=== PATIENT | male | born 1965 | race Caucasian/White ===

== ENCOUNTER 2022-12-28 18:57 | Outpatient (REF) | payer BC, SELFPAY | END 2022-12-28 18:58 | disposition home or self-care (01) | LOC: LBN 18:57 | PROVIDERS: Visit Provider Physician Assistant Medical | DX: J34.9 Unspecified disorder of nose and nasal sinuses (principal); R07.0 Pain in throat | CPT/HCPCS: 87070 ==

== ENCOUNTER 2023-01-21 04:52 | Emergency (ER) | payer BC, SELFPAY ==
[2023-01-21] VITALS (33 sets, daily range): BP systolic 100–129; BP diastolic 63–87; PULSE 41–86; RESP 16; TEMP 36.4; O2SAT 90–100
--- NOTE | 2023-01-21 05:00 | DI.CT_ITS ---
Exam(s) CT HEAD SINUS WO EXAM: CT HEAD SINUS WO CLINICAL HISTORY: near syncope and sinus congestion.. TECHNIQUE: Imaging Protocol: Axial computed tomography images with coronal and sagittal reformatted images were created and reviewed COMPARISON: No exams were available for comparison FINDINGS: BRAIN: There are no skull fractures. Paranasal sinus findings discussed below There is no evidence of intracranial hemorrhage, mass effect, or shift of midline structures. There are no extra-axial fluid collections. The ventricles are not enlarged or shifted and there is no blo od within the ventricular system nor within the basal cisterns. MAXILLOFACIAL CT SCAN: There is no evidence of acute facial fractures. No evidence of orbital blowout fracture.. There are surgical defects in the medial lloyd both maxillary sinuses including resection of the bila teral ostiomeatal units. There is abundant mucosal thickening in the maxillary sinuses, left more than right. No associated a cute fluid levels. There is mild mucosal thickening in the sphenoid sinuses. Also in the left front al sinus. There has been resection of ethmoidal air cells bilaterally. Mastoid air cells are clear- well aerated. No fluid in the middle ear cavities. IMPRESSION: No acute intracranial findings on this noninfused CT scan of the brain. Evidence of prior paranasal sinus surgery. Mucosal thickening in left greater than right maxillary s inus with polyposis in the nasal cavity. Also mucosal findings in the left frontal lobe and sphenoid sinuses. RADIATION DOSE DELIVERED: 940.05mGy.cm Total DLP DATA REPOSITORY: All CT scans at this facility are submitted to the National Radiology Data Registry (NRDR) Dose Index Registry (DIR) with the [employer] (ACR). RADIATION OPTIMIZATION: All CT scans at this facility use at least one of these dose optimization te chniques: automated exposure control; mA and/or kV adjustment per patient size (includes targeted exa ms where dose is matched to clinical indication); or iterative reconstruction.
--- NOTE | 2023-01-21 05:00 | DI.RAD_ITS ---
Exam(s) XR CHEST 2V PA LATERAL EXAM: XR CHEST 2V PA LATERAL CLINICAL HISTORY: near syncope, chest numbness. TECHNIQUE: 2D digital imaging was performed. COMPARISON: No exams were available for comparison FINDINGS: 2 views: Heart size is normal. The mediastinum is not widened. Lungs are clear. No infiltrates nor pleural effusions. IMPRESSION: No acute pulmonary findings. DATA REPOSITORY: RADIATION DOSE DELIVERED:
--- NOTE | 2023-01-21 05:15 | RT.EKG_ITS ---
APPROVED REPORT Exam: Resting ECG Reason for Exam: near syncope Patient Location: E HR:55 bpm ECG Measurements Heart Rate 55 AXIS CO 222 P 39 QRSd 109 QRS 73 QT 453 T 41 QTc 434 Conclusion Sinus bradycardia...rate< 60 Prolonged CO interval...CO >210, V-rate 50- 90 Borderline 1st degree AVB. Normal axis. No STEMI. no previous available for comparison.
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
[2023-01-21 05:31] LABS: Abs Immature Grans 0.01 10^3/uL (0.0-0.06); Absolute Basophil Count 0.11 10^3/uL (0.0-0.2); Absolute Eosinophil Count 0.51 10^3/uL (0.0-0.7); Absolute Lymphocyte Count 2.67 10^3/uL (1.2-3.4); Absolute Monocyte Count 0.82 10^3/uL (0.1-0.8); Absolute Neutrophil Count 3.88 10^3/uL (1.2-6.7); Basophils % 1.4; Eosinophils % 6.4; HCT 42.6 % (40.0-50.0); HGB 14.7 g/dL (13.5-17.5); Immature Grans % 0.1; Lymphocytes % 33.4; MCH 28.5 pg (27.0-33.0); MCHC 34.5 % (32.0-36.0); MCV 83 fL (80-95); MPV 8.8 fL (8.0-11.0); Monocytes % 10.3; Neutrophils % 48.4; Platelet Count 392 10^3/uL (130-400); RBC 5.16 10^6/uL (4.36-5.78); RDW 13.3 % (11.8-14.1); RDW-SD 40.7 fL
[2023-01-21 05:44] LABS: Mono Screening Negative (Negative)
[2023-01-21 05:46] LABS: ALT 32 U/L (16-63); AST 22 U/L (15-37); Albumin 3.9 g/dL (3.4-5.0); Alkaline Phosphatase 79 U/L (46-116); Anion Gap 13.7 mmol/L (3-11); BUN 10 mg/dL (7-18); Bilirubin, Total 0.4 mg/dL (0.2-1.0); CO2 23.3 mmol/L (21.0-32.0); Calcium 9.3 mg/dL (8.5-10.1); Chloride 101 mmol/L (98-107); Estimated GFR 87.78 (mL/min/1.73m2); Glucose 105 mg/dL (74-106); Potassium 3.4 mmol/L (3.5-5.1); Sodium 138 mmol/L (136-145); Total Protein 8.2 g/dL (6.4-8.2)
[2023-01-21 05:49] LABS: Troponin I < 50 ng/L (<or=60)
[2023-01-21 07:19] LABS: COVID-19 PCR Negative (Negative); Influenza A PCR Negative (Negative); Influenza B PCR Negative (Negative); RSV PCR Negative (Negative)
[2023-01-21 07:20] LABS: Source Nasopharynx
--- NOTE | 2023-01-21 08:07 | DI.VRAD_ITS ---
PROCEDURE INFORMATION: Exam: CT Head Without Contrast Exam date and time: 01/21/2023 6:06 AM Age: 57 years old Clinical indication: Other: Near syncope and sinus congestion. Prior surgery; Surgery date: 6+ months TECHNIQUE: Imaging protocol: Computed tomography of the head without contrast. COMPARISON: No relevant prior studies available. FINDINGS: Brain: Normal. No hemorrhage. Unremarkable white matter. No mass effect. Cerebral ventricles: No ventriculomegaly. Paranasal sinuses: Polyposis involving the frontal and maxillary sinuses. There is polyposis in the nasal cavity. Mastoid air cells: Visualized mastoid air cells are well aerated. Bones/joints: Unremarkable. No acute fracture. Soft tissues: Unremarkable. IMPRESSION: 1. No acute intracranial abnormality is appreciated. 2. Polyposis within the paranasal sinuses and nasal cavity. PROCEDURE INFORMATION: Exam: CT Maxillofacial Without Contrast, Sinus Exam date and time: 01/21/2023 6:06 AM Age: 57 years old Clinical indication: Other: Near syncope and sinus congestion. Prior surgery; Surgery date: 6+ months TECHNIQUE: Imaging protocol: CT Maxillofacial without contrast. Focus on the sinuses. COMPARISON: No relevant prior studies available. FINDINGS: Frontal sinuses: Normal. No air-fluid levels. Ethmoid sinuses: Normal. No air-fluid levels. Sphenoid sinuses: Normal. No air-fluid levels. Maxillary sinuses: Polyposis in the frontal and maxillary sinuses left side greater than right. Minimal polyposis within the sphenoid sinus. Postoperative antrectomy and uncinectomy surgical change. There is communication of the both maxillary sinuses with the nasal cavity. Nasal cavity: Polyposis in the nasal cavity. Orbital cavities: Orbits are normal. Globes are unremarkable. Bones/joints: Unremarkable. Soft tissues: Unremarkable. IMPRESSION: Postoperative antrectomy and uncinectomy surgical change. There is polyposis in both maxillary sinuses left side greater than right. There is polyposis in the nasal cavity. There is minimal polyposis involving the frontal and sphenoid sinuses left side greater than right. Dictated and Authenticated by: Ekaterina Hoff MD. Ordering:ZACHARIAH Loving MD
--- NOTE | 2023-01-21 08:07 | DI.VRAD_ITS ---
PROCEDURE INFORMATION: Exam: XR Chest Exam date and time: 01/21/2023 6:10 AM Age: 57 years old Clinical indication: Other: Near syncope; Prior surgery; Surgery date: 6+ months; Surgery type: Snus TECHNIQUE: Imaging protocol: Radiologic exam of the chest. Views: 2 views. COMPARISON: No relevant prior studies available. FINDINGS: Lungs: Unremarkable. No consolidation. Pleural spaces: Unremarkable. No pleural effusion. No pneumothorax. Heart/Mediastinum: Unremarkable. No cardiomegaly. Bones/joints: Unremarkable. IMPRESSION: No acute findings. Dictated and Authenticated by: Ekaterina Hoff MD. Ordering:ZACHARIAH Loving MD
--- NOTE | 2023-01-21 09:00 | NUR.NOTE ---
Referral per DR. Do to ENT next week for Polyposis. Put the referral in the Funnel Setter's box for follow up assistance.Nursing Note:
== END 2023-01-21 08:55 | disposition home or self-care (01) ==
PROVIDERS: Emergency Provider Emergency Medicine Emergency Medical Services
DX: J33.8 Other polyp of sinus (principal); R09.81 Nasal congestion; R55 Syncope and collapse; R06.4 Hyperventilation
CPT/HCPCS: 36415; 80053; 87637; 93005; 99285; 70450; 70486; 71046; 84484; 85025; 86308; 93010; 99284

== ENCOUNTER → 2023-04-03 02:10 | Outpatient (CLI) | payer BC, SELFPAY ==
--- NOTE | 2023-04-03 06:25 | ETT_ITS ---
APPROVED REPORT Exam: Exercise Treadmill Patient Location: Out-Patient Room/Bed: Stress Nurse: Imtiaz Sullivan RN Ordering Provider:JENIFFER YANES, Contact Number: [phone] BMI: 28.94 Baseline Rhythm: Sinus Bradycardia Indications: Follow up/exertional palpitations, exertional, HTN. Medical History Medical History: HTN Cardiac Medications: amlodipine. Allergies: amoxicillen, PCC, ibuprofen, sulfa, tree nuts, diptheria, pertyussis, tetanus vaccines. Cardiac Risk Factors: HTN, HLD. Pretest Chest Pain Characteristics: No chest pain Exercise History: Physically active Lung Sounds: Clear to auscultation Heart Sounds: Regular Stress Test Details Test: Exercise stress testing was performed using a Enrique protocol. Rest Stress HR Resting HR Supine: 57 bpm Max Heart Rate (APMHR): 163 bpm Resting HR Standin bpm Target HR (85% APMHR): 139 bpm Max HR Achieved: 150 bpm % of APMHR: 92 Recovery HR: 83 bpm HR response to stress: Normal HR response to stress BP Resting BP Supine: 124/74 mmHg Resting BP Standin/82 mmHg Max BP: 184/68 mmHg Recovery BP: 142/74 mmHg BP response to stress: Normal blood pressure response to stress. ECG Resting ECG: Sinus Rhythm, Sinus Bradycardia Stress ECG: Sinus Tachycardia ST Change: No significant ST segment changes noted Arrhythmia: None Recovery ECG: Sinus Rhythm Recovery ST Change: No significant ST segment changes noted Recovery Arrhythmia: None Clinical Reason for Termination: Fatigue, Target HR Achieved Stress Symptoms: General Fatigue Exercise duration: 9 min00 sec Highest Stage Reached: Stage 4: 4.2 mph at 16% grade. Exercise capacity: 10 METs Angina Score: None Pimentel Treadmill Score: 9.3 Rate Pressure Product: [id number] Stress ECG Conclusion 1. Resting electrocardiogram showed vertical axis, late transition 2. Patient exercised on the Enrique protocol and completed a workload of 10 METS stopping due to fatigu e 3. Normal heart rate and blood pressure response to exercise. The patient achieved 92% of predicted heart rate for age 4. There was no electrocardiographic evidence of myocardial ischemia 5. There were no dysrhythmias Pimentel Treadmill Score is 9.3 which is Low risk. Stress Test Summary STAGE Time (mins) Speed (mph) Grade (%) HR BP SpO2 SYMPTOMS METS Supine 57 127/74 98 Standing 73 112/82 1 3 1.7 10 94 142/72 98 4.5 2 6 2.5 12 110 148/74 98 7 3 9 3.4 14 150/80 98 10 1 min recovery 150 184/68 98 3 min recovery 90 176/72 98 6 min recovery 83 142/74 98
== END ==
PROVIDERS: PCP Nurse Practitioner; Visit Provider Nurse Practitioner
DX: I10 Essential (primary) hypertension (principal); R00.2 Palpitations
CPT/HCPCS: 93017

== ENCOUNTER 2024-04-17 10:29 | Outpatient (CLI) | payer BC, SELFPAY ==
--- NOTE | 2024-04-17 09:30 | DI.RAD_ITS ---
Exam(s) XR CHEST 2V PA LATERAL EXAM: XR CHEST 2V PA LATERAL CLINICAL HISTORY: chest tightness U07.1 COVID 19 TECHNIQUE: 2D digital imaging was performed. Two views. COMPARISON: No exams were available for comparison FINDINGS: HEART: Normal size. Aorta: Not dilated. PULMONARY VASCULATURE: Normal. MEDIASTINUM: Unremarkable. LUNGS: Clear. PLEURAL SPACE: No pleural effusion or pneumothorax. BONE:Unremarkable for age. SOFT TISSUES: Unremarkable. IMPRESSION: No acute abnormality. DATA REPOSITORY: RADIATION DOSE DELIVERED:
== END 2024-04-17 10:49 ==
LOC: DI 10:29
PROVIDERS: PCP Nurse Practitioner; Visit Provider Nurse Practitioner
DX: R07.9 Chest pain, unspecified (principal)
CPT/HCPCS: 71046

== ENCOUNTER 2024-11-12 12:56 | Outpatient (CLI) | payer BC, SELFPAY ==
--- NOTE | 2024-11-12 15:35 | DI.RAD_ITS ---
Exam(s) XR HAND RT COMPLETE EXAM: XR HAND RT COMPLETE CLINICAL HISTORY: palmar FB? M79.5 residual Foreign body in soft tissue. TECHNIQUE: 2D digital imaging was performed. Three views. COMPARISON: No exams were available for comparison FINDINGS: BONES: No acute fracture is present. No bony destructive lesion is seen. JOINTS: No dislocation present. SOFT TISSUE: Normal. No visible foreign body. IMPRESSION: Unremarkable radiographs of the right hand. No visible foreign body. DATA REPOSITORY: RADIATION DOSE DELIVERED:
== END 2024-11-12 13:16 ==
PROVIDERS: PCP Nurse Practitioner; Visit Provider Emergency Medicine
DX: M79.5 Residual foreign body in soft tissue (principal)
CPT/HCPCS: 73130

== ENCOUNTER 2025-04-16 08:44 | Outpatient (REF) | payer BC, SELFPAY ==
--- NOTE | 2025-04-16 08:40 | SKI_PTH ---
PATIENT: Al Valero LOC: [facility] U#:[id number] AGE/SX: 59/M ROOM: RE04/16/[address]: Cassie Candelario MD : 1965 BED: DIS: 04/16/2025 SPEC #: [id number] RECD: 04/16/25 13:05 STATUS: FAREED HUSTON #: [id number] TORI: 04/16/25 08:[address]: Cassie Candelario DEPT: Surgical Specimen RECD BY: Ana Cornejo ENTERED: 04/16/25 13:05 SP TYPE: SKI OTHR DR: Abdirizak Senior Tissues: 1 - SKIN BIOPSY(SHAVE/PUNCH) Procedures: SKIN LEVEL 4 Comments: [id number]
== END 2025-04-16 08:45 | disposition home or self-care (01) ==
LOC: LBN 08:44
PROVIDERS: Visit Provider Surgery
DX: L98.0 Pyogenic granuloma (principal)
CPT/HCPCS: 88305